=== PATIENT | male | born 1935 | race Caucasian/White ===

== ENCOUNTER → 2016-10-25 | Outpatient (CLI) | payer BC ==
[2016-10-25 17:38] LABS: BASO % 0.4 %; BASO ABS # 0.02 K/uL (0-0.2); COMPLETE YES; EOS % 2.1 %; HEMATOCRIT 39.5 % (42-52); LYMPH % 26.2 %; LYMPH ABS # 1.36 K/uL (1.2-3.4); MEAN CELL VOLUME 97.8 fL (80-100); MEAN CORPUSCULAR HEMOGLOBIN 33.9 pg (25-34); MEAN CORPUSCULAR HGB CONC 34.7 g/dl (32-36); MEAN PLATELET VOLUME 9.5 fL (7.4-10.4); MONO % 12.5 %; NEUT % 58.8 %; PLATELET COUNT 193 K/uL (130-400); RED BLOOD COUNT 4.04 M/uL (4.7-6.1); WHITE BLOOD COUNT 5.19 K/uL (4.8-10.8)
[2016-10-25 17:56] LABS: ALT/SGPT 29 U/L (12-78); AST/SGOT 23 U/L (15-37); BLOOD UREA NITROGEN 15 mg/dl (7-18); BUN/CREATININE RATIO 13.4 (10-20); CARBON DIOXIDE 29 mmol/L (21-32); CHLORIDE 108 mmol/L (98-107); CHOLESTEROL 140 mg/dl (0-200); GLUCOSE 95 mg/dl (70-99); SODIUM 140 mmol/L (136-145)
[2016-10-25 18:18] LABS: ALB/GLOB RATIO 0.9 (0.9-2); ALKALINE PHOSPHATASE 66 U/L (45-117); HDL CHOLESTEROL 47 mg/dl; LDL CHOLESTEROL CALCULATED 42 mg/dl; TRIGLYCERIDES 254 mg/dl (0-150); VERY LOW DENSITY LIPOPROT CALC 51 mg/dl
== END | disposition home or self-care (01) ==
LOC: C.LABPBG 15:03
PROVIDERS: ATTEND Internal Medicine Geriatric Medicine
DX: I10 Essential (primary) hypertension (principal); K21.9 Gastro-esophageal reflux disease without esophagitis; M19.90 Unspecified osteoarthritis, unspecified site; E78.5 Hyperlipidemia, unspecified